=== PATIENT | male | born 1980 | race Caucasian/White ===

== ENCOUNTER 2020-10-04 07:04 | Day surgery (SDC) | payer OTHER, SELFPAY ==
[2020-09-28 13:48] VITALS: BMI 28.2
[2020-10-04] MEDS: Lactated Ringers 1,000 ML 50 ML IVCONT (07:51)
[2020-10-04 07:52] VITALS: BP 124/72; PULSE 61; RESP 20; TEMP 37; O2SAT 96
--- NOTE | 2020-10-04 08:01 | HO.ANESPROP2 ---
FORMERLY [facility] Past Medical History Medical History Hx of fracture of femur No significant medical problems Surgical History Surgical History Hx of bilateral inguinal hernia repair Social History Social History Are you a primary health care legal assistant to a significant other at home: No Do you presently have visiting nurse or other home services: No Smoking Status: Former smoker Smoking Quit Date: Age 22 Use of substances other than those prescribed or required for medical reasons: No Have you been hit, kicked, punched, or otherwise hurt by someone within the past year? If so, by whom?: No Advance Directives: No Advance Directives Information Provided: No Advance Directives on File: No Recently lost weight without trying: No Meds Allergies Allergy/AdvReac Type Severity Reaction Status Date / Time No Known Allergies Allergy Verified 09/28/20 13:47 Home Medications Medication Instructions Recorded Confirmed Type No Known Home Meds 09/28/20 09/28/20 History Exam Exam Date and Time: October 04, 2020 08 Height,Weight and Vital Signs: Height 5 ft 9 in Weight 86.636 kg Last Vital Signs Temp 98.6 F 10/04/20 07:52 Pulse 61 10/04/20 07:52 Resp 20 10/04/20 07:52 BP 124/72 10/04/20 07:52 Pulse Ox 96 10/04/20 07:52 Airway Mallampati Class: II TM Dist: >3cm Neck ROM: Full Loose/Missing/Broken Teeth: No Heart: rrr+[id number] Lungs: cta b/l Assessment and Plan Assessment Anesthesia Assessment: Anesthesia Plan Discussed and PAT Visit Final Anesthetic Review NPO: Yes ASA Class: I Final Preanesthetic Review: No Changes in Pt Med Stat, Meds/Allgs Chart Reviewed and Consent Obtained/Reviewed Patient Risk: Low Procedure Risk: Low Anesthetic Plan Anesthetic Plan: MAC: Disposition: Standard PACU
--- NOTE | 2020-10-04 08:02 | MHC.SHP ---
Pre-Procedural Eval Section A The patient is an INPATIENT: No Changes since office visit: No Cold of Flu in the past 2 weeks, No New Medical Problems, No Changes in Medication and No Patient answered all questions The History & Physical has been completed within 30 days and I have reviewed it.: Yes Section B Chief Complaint: change in bowel habit Allergies: Allergies Allergy/AdvReac Type Severity Reaction Status Date / Time No Known Allergies Allergy Verified 09/28/20 13:47 Plan Patient has been examined and remains a candidate for the planned procedure
[2020-10-04 08:37] VITALS: BP 109/52; PULSE 67; RESP 12; TEMP 36.3; O2SAT 94
--- NOTE | 2020-10-04 08:40 | PM.OP ---
Brief Operative Note Date of Service: 10/04/20 Pre-op diagnosis: change in bowel habits Post-op diagnosis: same (colon polyp) Procedure: colonoscopy Surgeon: Víctor Dick Anesthesia: MAC Estimated blood loss (mL): 3 Pathology: other (sigmoid biopsies, rectal polyp) Condition: stable Disposition: PACU
[2020-10-04 08:49] VITALS: BP 118/65; PULSE 65; RESP 14; TEMP 36.3; O2SAT 97
--- NOTE | 2020-10-04 09:09 | OP_ITS ---
SURGEON: Víctor Dick MD PREOPERATIVE DIAGNOSIS: POSTOPERATIVE DIAGNOSIS: PROCEDURE PERFORMED: Colonoscopy to the terminal ileum with biopsy. ESTIMATED BLOOD LOSS: COMPLICATIONS: ANESTHESIA: Monitored anesthesia care. ASSISTANTS: SPECIMENS: INDICATION: Change in bowel habits. DESCRIPTION OF PROCEDURE: History and physical was performed, risks and benefits of the procedure were explained to the patient. Informed consent was obtained. The patient was placed in the left lateral decubitus position. A digital rectal exam was performed and was found to be normal. The Olympus pediatric video colonoscope was introduced into the rectum and advanced into the cecum without difficulty. The cecum was identified by transillumination, palpation, and identification of ileocecal valve. Examination was performed. The scope was removed. He tolerated the procedure well and was taken to recovery area in stable condition. FINDINGS: The terminal ileum was normal. The visualized colonic mucosa was normal. The quality of the prep was good. Random biopsies were obtained from the sigmoid because of the patient's change in bowel habits. There was no colitis identified. There was mild sigmoid diverticulosis. In the rectum there was a less than 5 mm sessile polyp which was removed with biopsy forceps. No other polyps were identified. Small internal hemorrhoids were noted as well. IMPRESSION: Colon polyp. RECOMMENDATION: Follow up with the biopsy results. MD MICHAEL Pena/MIGUEL / [id number]
--- NOTE | 2020-10-04 09:17 | HO.POSTANES ---
Post Anesthesia Evaluation Post Anesthesia Evaluation Vital Signs: Vital Signs Temp Pulse Resp BP Pulse Ox 10/04/20 08:49 97.3 F 65 14 118/65 97 10/04/20 08:37 97.3 F 67 12 109/52 L 94 10/04/20 07:52 98.6 F 61 20 124/72 96 Anesthesia: Monitored Mental Status: Awake Pain Control: Satisfactory Nausea/Vomiting: None Hydration: Adequate Anesthesia-Related Issues: No Anes. Related Issues
== END 2020-10-04 09:30 | disposition home or self-care (01) ==
PROVIDERS: PCP Family Medicine; Visit Provider Internal Medicine Gastroenterology
PROC: 0DJD8ZZ Inspection of Lower Intestinal Tract, Via Natural or Artificial Opening Endoscopic (ICD-10-PCS; CPT 45378; principal; 2020-10-04 08:00)
DX: R19.4 Change in bowel habit (principal); K62.1 Rectal polyp; K57.30 Diverticulosis of large intestine without perforation or abscess without bleeding; K64.8 Other hemorrhoids
CPT/HCPCS: 45380; 88305